=== PATIENT | female | born 1950 | race Caucasian/White ===

== ENCOUNTER 2018-05-16 08:30 | Observation (INO) ==
[2018-05-16] MEDS ORDERED: Sod Chloride 0.9% Inj 1,000 ML IV.SIG ONE (09:01)
[2018-05-16] MEDS ORDERED: Morphine Inj 4 MG/ML Vial IV.PUSH ONE (09:01)
--- NOTE | 2018-05-16 09:30 | ED ---
HPI General Chief Complaint: Abdominal Pain Stated Complaint: rt flank pain x lastnight Time Seen by Provider: 05/16/18 08:54 Source: patient and family Limitations: no limitations History of Present Illness HPI narrative: Patient is a 68-year-old female, past medical history significant for hypertension, hyperlipidemia, previous hysterectomy and appendectomy, who presents with complaint of sudden onset right-sided abdominal pain that woke her from sleep at approximately 2 AM and this is associated with nonbilious, nonbloody emesis. She denies any diarrhea or constipation. She denies any fever or chills. No chest pain or shortness of breath. This pain is never happened before. She states that nothing seems to make it better and position does not change it much. She believes that movement makes it worse though she is not sure. MD complaint: Reports abdominal pain Onset (ago): hour(s) Pain Consistency: constant Location: Reports RUQ and RLQ Severity: severe Quality: Reports cramping, aching and fullness Radiation: Reports none Migration to: Reports no migration Relieving factors: nothing Exacerbating factors: movement Associated symptoms: Reports nausea and vomiting Related Data Home Medications Medication Instructions Recorded Confirmed atenolol 50 mg PO DAILY 05/16/18 05/16/18 simvastatin 10 mg PO QPM 05/16/18 05/16/18 sumatriptan succinate [Imitrex] 100 mg PO Q2-4H PRN 05/16/18 05/16/18 Allergies Allergy/AdvReac Type Severity Reaction Status Date / Time No Known Allergies Allergy Verified 05/16/18 08:43 Review of Systems ROS: all other systems reviewed are negative [facility] Medical History Medical History Elevated cholesterol (Acute) HTN (hypertension) (Acute) History of hysterectomy (Acute) Migraines (Acute) Social History Social History Substance History: No History of Abuse Smoking Status: Current every day smoker Tobacco Type: Cigarettes How Often Do You Have a Drink Containing Alcohol: Monthly or less Recent Travel in [facility] within the Last 8 Weeks: No Recent Out of Country Travel within the Last 8 Weeks: No Immunization History Tetanus Immunization: <5 Years Exam Narrative Exam Narrative: GENERAL: Elderly ill-appearing female clutching her right side SKIN: Focused skin assessment warm/dry. HEAD: Atraumatic. Normocephalic. EYES: Pupils equal and round. No scleral icterus. No injection or drainage. ENT: No nasal bleeding or discharge. Mucous membranes pink and moist. NECK: Trachea midline. No JVD. CARDIOVASCULAR: Regular rate and rhythm. No murmur appreciated. Intact and equal peripheral pulses. RESPIRATORY: No accessory muscle use. Clear to auscultation. Breath sounds equal bilaterally. GASTROINTESTINAL: Abdomen soft, tenderness in the right mid abdomen and right upper quadrant with a positive Santos sign, nondistended. Hepatic and splenic margins not palpable. No CVA tenderness. MUSCULOSKELETAL: No obvious deformities. No clubbing. No cyanosis. No edema. NEUROLOGICAL: Awake and alert. No obvious cranial nerve deficits. Motor grossly within normal limits. Normal speech. PSYCHIATRIC: Appropriate mood and affect; insight and judgment normal. Course Initial Documented Vital Signs Temperature 97.9 F 05/16/18 08:40 Pulse Rate 60 05/16/18 08:40 Respiratory Rate 18 05/16/18 08:40 Blood Pressure 149/66 H 05/16/18 08:40 Pulse Oximetry 98 05/16/18 08:40 Last Documented Vital Signs Temperature 97.9 F 05/16/18 08:40 Pulse Rate 55 L 05/16/18 12:42 Respiratory Rate 18 05/16/18 12:42 Blood Pressure 111/50 L 05/16/18 12:42 Pulse Oximetry 96 05/16/18 12:06 Medical Decision Making [facility] Narrative Medical decision making narrative: Patient is a 68-year-old female who presents with complaint of sudden onset right-sided abdominal pain that woke her from sleep associated with nausea and vomiting. She appeared ill on arrival but was hemodynamically stable. She was given fluids, Zofran, morphine after which she felt much more comfortable. Initial labs revealed a leukocytosis and lactic acidosis at which time blood cultures were drawn and she was given vancomycin and Zosyn empirically. Ultrasound shows biliary sludge but no pericholecystic fluid nor wall thickening. CT shows inflammatory changes around portions of the duodenum with trace free fluid but no perforation. Repeat lactic acid normalized. Given her leukocytosis, lactic acidosis and sudden onset abdominal pain in this elderly female she will be admitted for observation as there is not yet a confirmatory source of her lactic acidosis. I discussed this with the patient and she did not feel comfortable going home at this time though she was feeling much better but she should stay overnight in the hospital. I discussed the case with Dr. Aguirre, hospitalist chemical instrumentation officer, who agreed to the observation admission. It is possible that she had an intussusception as it often occurs at that portion of the duodenum which spontaneously resolved prior to CT. Medical Screen Exam Complete: Yes Emergency Medical Condition: Yes Differential Diagnosis Differential Diagnosis: Differential diagnosis includes but is not limited to acute cholecystitis, stump appendicitis, cecal volvulus, renal colic. Medical Records Medical records reviewed: Yes I reviewed the patient's medical records. Lab Data Lab results reviewed: Yes I reviewed the patient's lab results. Result diagrams: 05/16/18 09:15 05/16/18 09:15 Lab Results 05/16/18 05/16/18 05/16/18 Range/Units 09:15 09:15 09:15 CBC w Diff Auto diff final WBC 13.6 H (4.0-11.0) th/mm3 RBC 4.87 (4.00-5.30) mil/mm3 Hgb 14.5 (11.6-15.3) gm/dL Hct 43.8 (35.0-46.0) % MCV 89.9 (80.0-100.0) fL MCH 29.8 (27.0-34.0) pg MCHC 33.1 (32.0-36.0) % RDW 13.3 (11.6-17.2) % Plt Count 264 (150-450) th/mm3 MPV 10.2 (7.0-11.0) fL Neut % (Auto) 83.9 H (16.0-70.0) % Lymph % (Auto) 10.2 (9.0-44.0) % [place] % (Auto) 5.3 (0.0-8.0) % Eos % (Auto) 0.3 (0.0-4.0) % Baso % (Auto) 0.3 (0.0-2.0) % Neut # (Auto) 11.5 H (1.8-7.7) th/mm3 Lymph # (Auto) 1.4 (1.0-4.8) th/mm3 [place] # (Auto) 0.7 (0.0-0.9) th/mm3 Eos # (Auto) 0.0 (0.0-0.4) th/mm3 Baso # (Auto) 0.0 (0.0-0.2) th/mm3 WBC Differential . Differential Comment . Sodium 143 (136-145) meq/L Potassium 4.0 (3.5-5.1) meq/L Chloride 109 H (98-107) meq/L Carbon Dioxide 24.8 (21.0-32.0) meq/L Anion Gap 9 (5-15) meq/L BUN 24 H (7-18) mg/dL Creatinine 1.20 H (0.50-1.00) mg/dL Estimated GFR 45 L (>89) mL/min Random Glucose 137 H (74-106) mg/dL Lactic Acid 3.1 H (0.4-2.0) mmol/L Calcium 9.2 (8.5-10.1) mg/dL Magnesium 1.7 (1.5-2.5) mg/dL Total Bilirubin 0.4 (0.2-1.0) mg/dL AST 19 (15-37) U/L ALT 19 (10-53) U/L Alkaline Phosphatase 90 (45-117) U/L Total Protein 7.0 (6.4-8.2) g/dL Albumin 3.9 (3.4-5.0) g/dL Lipase 137 (73-393) U/L Ur Collection Type Urine Color (Yellw/Straw) Urine Clarity (Clear) Urine pH (5.0-8.5) Ur Specific [place] (1.002-1.035) Urine Protein (Neg-Trace) mg/dL Urine Glucose (UA) (Negative) mg/dL Urine Ketones (Negative) mg/dL Urine Occult Blood (Negative) Urine Nitrate (Negative) Urine Bilirubin (Negative) Urine Urobilinogen (Less than 2) mg/dL Ur Leukocyte Esterase (Negative) Ur Squamous Epith Cells (0-5) /hpf Micro UA Comment Ur Microscopic Review Urine Culture Comments 05/16/18 05/16/18 Range/Units 11:25 12:00 CBC w Diff WBC (4.0-11.0) th/mm3 RBC (4.00-5.30) mil/mm3 Hgb (11.6-15.3) gm/dL Hct (35.0-46.0) % MCV (80.0-100.0) fL MCH (27.0-34.0) pg MCHC (32.0-36.0) % RDW (11.6-17.2) % Plt Count (150-450) th/mm3 MPV (7.0-11.0) fL Neut % (Auto) (16.0-70.0) % Lymph % (Auto) (9.0-44.0) % [place] % (Auto) (0.0-8.0) % Eos % (Auto) (0.0-4.0) % Baso % (Auto) (0.0-2.0) % Neut # (Auto) (1.8-7.7) th/mm3 Lymph # (Auto) (1.0-4.8) th/mm3 [place] # (Auto) (0.0-0.9) th/mm3 Eos # (Auto) (0.0-0.4) th/mm3 Baso # (Auto) (0.0-0.2) th/mm3 WBC Differential Differential Comment Sodium (136-145) meq/L Potassium (3.5-5.1) meq/L Chloride (98-107) meq/L Carbon Dioxide (21.0-32.0) meq/L Anion Gap (5-15) meq/L BUN (7-18) mg/dL Creatinine (0.50-1.00) mg/dL Estimated GFR (>89) mL/min Random Glucose (74-106) mg/dL Lactic Acid 1.4 (0.4-2.0) mmol/L Calcium (8.5-10.1) mg/dL Magnesium (1.5-2.5) mg/dL Total Bilirubin (0.2-1.0) mg/dL AST (15-37) U/L ALT (10-53) U/L Alkaline Phosphatase (45-117) U/L Total Protein (6.4-8.2) g/dL Albumin (3.4-5.0) g/dL Lipase (73-393) U/L Ur Collection Type Random Urine Color Straw (Yellw/Straw) Urine Clarity Clear (Clear) Urine pH 7.0 (5.0-8.5) Ur Specific [place] 1.010 (1.002-1.035) Urine Protein Negative (Neg-Trace) mg/dL Urine Glucose (UA) Negative (Negative) mg/dL Urine Ketones Negative (Negative) mg/dL Urine Occult Blood Negative (Negative) Urine Nitrate Negative (Negative) Urine Bilirubin Negative (Negative) Urine Urobilinogen 0.2 (Less than 2) mg/dL Ur Leukocyte Esterase Negative (Negative) Ur Squamous Epith Cells 0-5 (0-5) /hpf Micro UA Comment Culture not ind Ur Microscopic Review Microscopic reviewed Urine Culture Comments Culture not ind Imaging Data Attestation: I personally reviewed and interpreted this imaging study as follows : Radiologist's impression: Abdomen/Pelvis CT 05/16/18 09:01 CONCLUSION: 1. There is some subtle inflammatory change and a trace amount of fluid which is adjacent to the second and third portion of the duodenum. This tracks down into the right paracolic gutter. No free air is identified. No findings to indicate bowel obstruction are seen. Gallbladder Ultrasound 05/16/18 09:01 CONCLUSION: 1. Dilation of the pancreatic duct. 2. Trace amount of free fluid within the abdomen. 3. Minimal sludge in the gallbladder neck. There is no pericholecystic fluid or gallbladder wall thickening. Discharge Plan Discharge Disposition Patient Disposition: 30 Still Patient Discharge Condition Condition: Fair Discharge Details Diagnosis: Acidosis, lactic, Abdominal pain, acute Physicians Team ED Provider: Dina Flores Primary Care Provider: Reg David Attending Provider: Urbano Aguirre Status ED Status: Left Department Discharge Information Discharge Date/Time: 05/16/18 13:50
[2018-05-16 09:33] LABS: Baso % (Auto) 0.3 % (0.0-2.0); Eos % (Auto) 0.3 % (0.0-4.0); Hematocrit 43.8 % (35.0-46.0); Hemoglobin 14.5 gm/dL (11.6-15.3); Lymph # (Auto) 1.4 th/mm3 (1.0-4.8); Lymph % (Auto) 10.2 % (9.0-44.0); Mean Corpuscular HGB Conc 33.1 % (32.0-36.0); Mean Corpuscular Hemoglobin 29.8 pg (27.0-34.0); Mean Corpuscular Volume 89.9 fL (80.0-100.0); Mean Platelet Volume 10.2 fL (7.0-11.0); Mono # (Auto) 0.7 th/mm3 (0.0-0.9); Mono % (Auto) 5.3 % (0.0-8.0); Neut # (Auto) 11.5 th/mm3 (1.8-7.7); Neut % (Auto) 83.9 % (16.0-70.0); Platelet Count 264 th/mm3 (150-450); Red Blood Count 4.87 mil/mm3 (4.00-5.30); Red Cell Distribution Width 13.3 % (11.6-17.2); White Blood Count 13.6 th/mm3 (4.0-11.0)
[2018-05-16 09:59] LABS: Chloride 109 meq/L (98-107); Sodium 143 meq/L (136-145)
[2018-05-16 10:02] LABS: Albumin 3.9 g/dL (3.4-5.0); Anion Gap 9 meq/L (5-15); Calcium 9.2 mg/dL (8.5-10.1); Carbon Dioxide 24.8 meq/L (21.0-32.0); Glucose,Random 137 mg/dL (74-106); Magnesium 1.7 mg/dL (1.5-2.5)
[2018-05-16 10:05] LABS: Alanine Aminotransferase 19 U/L (10-53); Lipase 137 U/L (73-393)
[2018-05-16 10:06] LABS: Aspartate Aminotransferase 19 U/L (15-37); Glomerular Filtration Rate 45 mL/min (>89)
[2018-05-16 10:08] LABS: Alkaline Phosphatase 90 U/L (45-117)
[2018-05-16 10:14] LABS: Blood Urea Nitrogen 24 mg/dL (7-18)
[2018-05-16] MEDS ORDERED: Vancomycin Inj 1,000 MG in Sodium Chlor 0.9% Inj 250 ML IV.SIG ONE (10:31)
[2018-05-16] MEDS ORDERED: Piperacil/Tazo 4.5 GM Premix 4.5 GM/100 ML BAG IV.SIG ONE (10:31)
[2018-05-16] MEDS ORDERED: Sod Chloride 0.9% Inj 1,000 ML IV.SIG SCH (10:45)
--- NOTE | 2018-05-16 10:51 | CT ---
EXAM DATE: 05/16/2018 10:28 AM EST AGE/SEX: 68 years / Female INDICATIONS: Right upper and lower quadrant pain. Nausea and vomiting. CLINICAL DATA: This is the patient's initial encounter. Patient reports that signs and symptoms have been present for 1 day and indicates a pain score of 7/10. MEDICAL/SURGICAL HISTORY: Hypertension. Hysterectomy. Appendectomy. ORAL CONTRAST: No oral contrast ingested. RADIATION DOSE: 8.52 CTDI (mGy) COMPARISON: No prior exams available for comparison. TECHNIQUE: Multiple contiguous axial images were obtained through the abdomen and pelvis following b olus infusion of 95 ml Omnipaque 350 (iohexol) nonionic water-soluble contrast as a single exam dos e. No oral contrast ingested. Using automated exposure control and adjustment of the mA and/or kV ac cording to patient size, radiation dose was kept as low as reasonably achievable to obtain optimal di agnostic quality images. DICOM format image data is available electronically for review and comparis on. FINDINGS: The limited portion of lung base visualized is clear. Examination of the liver demonstrates 2 punctate low-attenuation lesions within the left lobe probabl y representing small simple cyst. The spleen, pancreas, adrenal glands and kidneys are within normal limits. The abdominal aorta is normal in caliber. There is no retroperitoneal lymphadenopathy. No free intrap eritoneal air is seen. No free fluid is identified. The visualized loops of small and large bowel demonstrate some subtle inflammatory change around seco nd and third portion of the duodenum this is nonspecific in appearance. There is no free fluid within the pelvis. No iliac or inguinal adenopathy is seen. The loops of small large bowel are unremarkable. There is atherosclerotic plaquing within the iliac arteries. The visualized bony structures demonstrate degenerative changes but are otherwise intact. CONCLUSION: 1. There is some subtle inflammatory change and a trace amount of fluid which is adjacent to the sec ond and third portion of the duodenum. This tracks down into the right paracolic gutter. No free air is identified. No findings to indicate bowel obstruction are seen. Electronically signed by: Mitchel Molina MD 05/16/2018 10:50 AM EST
--- NOTE | 2018-05-16 11:42 | US ---
EXAM DATE: 05/16/2018 11:36 AM EST AGE/SEX: 68 years / Female INDICATIONS: Right upper quadrant pain. CLINICAL DATA: This is the patient's initial encounter. Patient reports that signs and symptoms have been present for 1 day and indicates a pain score of 5/10. MEDICAL/SURGICAL HISTORY: Hypercholesterolemia. Hypertension. Migraines. Hysterectomy. COMPARISON: [facility], CT ABDOMEN & PELVIS W CONTRAST, 05/16/2018. . MEASUREMENTS: Liver:__ 15.1 cm. Common Bile Duct:__ 7mm. FINDINGS: Liver: Normal echotexture without focal lesion or ductal dilatation. The exam does demonstrate 2 pun ctate simple cyst with the largest measuring approximately 6 mm.. Portal Vein: Hepatopedal flow seen in portal vein. Common Duct: No intraluminal mass or stone visualized. Gallbladder: There is no gallbladder wall thickening or pericholecystic fluid. There is a trace amou nt of sludge within the gallbladder neck. Pancreas: The examination demonstrates mild dilation of the pancreatic duct at 4 mm. Right Kidney: Normal echotexture and cortical thickness. No mass or hydronephrosis. Other: There is a trace amount of free fluid within the abdomen. CONCLUSION: 1. Dilation of the pancreatic duct. 2. Trace amount of free fluid within the abdomen. 3. Minimal sludge in the gallbladder neck. There is no pericholecystic fluid or gallbladder wall th ickening. Electronically signed by: Mitchel Molina MD 05/16/2018 11:41 AM EST
[2018-05-16 12:05] LABS: Bilirubin,Urine Negative (Negative); Clarity,Urine Clear (Clear); Glucose,Urine (UA) Negative (Negative); Leukocyte Esterase,Urine Negative (Negative); Nitrite,Urine Negative (Negative); Urobilinogen,Urine 0.2 mg/dL (Less than 2)
[2018-05-16] MEDS ORDERED: Bisacodyl 10 MG Supp RECTAL PRN (12:13)
[2018-05-16 12:15] LABS: Color,Urine Straw (Yellw/Straw)
[2018-05-16] MEDS ORDERED: Sod Chloride 0.9% Inj 1,000 ML IV.CONT SCH (12:15)
[2018-05-16 12:27] LABS: Squamous Epithelial Cell,Urine 0-5 /hpf (0-5)
[2018-05-16] MEDS ORDERED: Acetaminophen 325 MG Tablet PO PRN (15:34)
--- NOTE | 2018-05-16 15:39 | P.HPIM ---
History of Present Illness Primary Care Physician: Reg David MD Patient is a 68-year-old female with past medical history of hypertension presenting to emergency department for complaints of new onset severe 10/10, sharp abdominal pain predominantly on right quadrant. Patient in her usual state of health prior to development of symptoms approximately 2 AM this morning. Review of systems positive for nonbloody nonbilious emesis, nausea, and dry heaving. Review of systems negative for back pain, urinary complaints, melena, hematemesis, lightheadedness, dizziness, loss of consciousness, radiation of pain, chest pain, or palpitations. Of note patient reports that she uses Aleve twice daily for knee pain but otherwise does not use NSAIDs or consume alcohol. No history of stones in the past. No aggravating component to symptoms. Symptoms only relieved when she presented to emergency department and was given a single dose of morphine in the morning but has been well for the last few hours outside of the nausea which she believes may be improving and wants to eat. No new medication changes. No antibiotic use recently. Patient denied noticing rash over her abdominal wall. Patient denied trauma. In emergency department patient received imaging study which showed inflammatory change and a trace amount of fluid which is adjacent to the second and third portion of the duodenum. This tracks down into the right paracolic gutter. No free air is identified. No findings to indicate bowel obstruction are seen. Patient was also found to have elevated lactate 3.1 and was given fluids by emergency department with improvement 1.4. [facility] Medical History Medical History Elevated cholesterol (Acute) HTN (hypertension) (Acute) History of hysterectomy (Acute) Migraines (Acute) Social History Social History Substance History: No History of Abuse Second Hand Smoke Exposure: Yes Smoking Status: Current every day smoker Tobacco Type: Cigarettes How Often Do You Have a Drink Containing Alcohol: Never Recent Travel in [facility] within the Last 8 Weeks: No Recent Out of Country Travel within the Last 8 Weeks: No Immunization History Tetanus Immunization: <5 Years Medications and Allergies Allergies Allergy/AdvReac Type Severity Reaction Status Date / Time No Known Allergies Allergy Verified 05/16/18 08:43 Home Medications Medication Instructions Recorded Confirmed Type atenolol 50 mg PO DAILY 05/16/18 05/16/18 History simvastatin 10 mg PO QPM 05/16/18 05/16/18 History sumatriptan succinate [Imitrex] 100 mg PO Q2-4H PRN 05/16/18 05/16/18 History Active Medications: Active Medications Acetaminophen (Tylenol) 650 mg PO Q4H PRN PRN Reason: Temp > 100.4 Al Hydroxide/Mg Hydroxide (Milk Of Magnleslie Liq) 30 ml PO Q12H PRN PRN Reason: Mild Constipation Bisacodyl (Dulcolax Supp) 10 mg RECTAL DAILY PRN PRN Reason: SEVERE CONSITIPATION Enoxaparin Sodium (Lovenox Inj) 30 mg SQ Q24H [facility] Sodium Chloride (Ns Inj) 1,000 mls @ 75 mls/hr IV.CONT .[id number] [facility] Stop: 05/17/18 01:34 Last Admin: 05/16/18 13:27 Dose: 75 mls/hr Ondansetron HCl (Zofran Inj) 4 mg IV.PUSH Q6H PRN PRN Reason: NAUSEA OR VOMITING Ondansetron HCl (Zofran Inj) 4 mg IV.PUSH Q6H PRN PRN Reason: NAUSEA OR VOMITING Senna/Docusate Sodium ([place]-Colace) 1 tab PO BID [facility] Sennosides (Senokot) 17.2 mg PO Q12H PRN PRN Reason: Moderate Constipation Sodium Chloride (Ns Flush) 2 ml IV.FLUSH BID VIOLETA Sodium Chloride (Ns Flush) 2 ml IV.FLUSH PRN PRN PRN Reason: FLUSH AFTER USING IV ACCESS Sodium Chloride (Ns Flush) 2 ml IV.FLUSH BID VIOLETA Sodium Chloride (Ns Flush) 2 ml IV.FLUSH PRN PRN PRN Reason: FLUSH AFTER USING IV ACCESS Physical Exam Vital signs: Last Vital Signs Temp 97.3 F L 05/16/18 14:18 Pulse 56 L 05/16/18 14:18 Resp 18 05/16/18 14:18 BP 108/58 L 05/16/18 14:18 Pulse Ox 97 05/16/18 14:18 Intake & Output 05/14/18 05/15/18 05/16/18 05/17/18 06:59 06:59 06:59 06:59 Intake Total 3350 / 3350 Balance 3350 / 3350 Weight 64 kg general: No acute distress, conversational HEENT: EOMI Cardia vascular: S1/S2. No murmurs rubs or gallops appreciated Respiratory: Clear to auscultation anteriorly posteriorly. No intercostal muscle use Gastrointestinal: Soft, nontender, nondistended, no guarding or rebound.. Negative Santos sign. No rash over abdominal cavity. Midline postsurgical scar from hysterectomy past. Extremity: No calf tenderness, no edema. Results Labs CBC & Chem 7: 05/16/18 09:15 05/16/18 09:15 Imaging Impressions Abdomen/Pelvis CT 05/16/18 09:01 CONCLUSION: 1. There is some subtle inflammatory change and a trace amount of fluid which is adjacent to the second and third portion of the duodenum. This tracks down into the right paracolic gutter. No free air is identified. No findings to indicate bowel obstruction are seen. Gallbladder Ultrasound 05/16/18 09:01 CONCLUSION: 1. Dilation of the pancreatic duct. 2. Trace amount of free fluid within the abdomen. 3. Minimal sludge in the gallbladder neck. There is no pericholecystic fluid or gallbladder wall thickening. Caprini VTE Risk Assessment Caprini VTE Risk Assessment: No/Low Risk (score <= 1) Caprini Risk Assessment Model: Point Value = 1 Point Value = 2 Point Value = 3 Point Value = 5 Age 41-60 Minor surgery BMI > 25 kg/m2 Swollen legs Varicose veins or History of unexplained or recurrent spontaneous Oral contraceptives or hormone replacement Sepsis (< 1 month) Serious lung disease, including pneumonia (< 1 month) Abnormal pulmonary function Acute myocardial infarction Congestive heart failure (< 1 month) History of inflammatory bowel disease Medical patient at bed rest Age 61-74 Arthroscopic surgery Major open surgery (> 45 min) Laparoscopic surgery (> 45 min) Malignancy Confined to bed (> 72 hours) Immobilizing plaster cast Central venous access Age >= 75 History of VTE Family history of VTE Factor V Leiden Prothrombin [id number] Lupus anticoagulant Anticardiolipin antibodies Elevated serum homocysteine Heparin-induced thrombocytopenia Other congenital or acquired thrombophilia Stroke (< 1 month) Elective arthroplasty Hip, pelvis, or leg fracture Acute spinal cord injury (< 1 month) Prophylaxis Regimen: Total Risk Factor Score Risk Level Prophylaxis Regimen 0-1 Low Early ambulation 2 Moderate Order ONE of the following: *Sequential Compression Device (SCD) *Heparin 5000 units SQ BID 3-4 Higher Order ONE of the following medications: *Heparin 5000 units SQ TID *Enoxaparin/Lovenox 40 mg SQ daily (WT < 150 kg, CrCl > 30 mL/min) *Enoxaparin/Lovenox 30 mg SQ daily (WT < 150 kg, CrCl > 10-29 mL/min) *Enoxaparin/Lovenox 30 mg SQ BID (WT < 150 kg, CrCl > 30 mL/min) AND/OR *Sequential Compression Device (SCD) 5 or more Highest Order ONE of the following medications: *Heparin 5000 units SQ TID (Preferred with Epidurals) *Enoxaparin/Lovenox 40 mg SQ daily (WT < 150 kg, CrCl > 30 mL/min) *Enoxaparin/Lovenox 30 mg SQ daily (WT < 150 kg, CrCl > 10-29 mL/min) *Enoxaparin/Lovenox 30 mg SQ BID (WT < 150 kg, CrCl > 30 mL/min) AND *Sequential Compression Device (SCD) Assessment and Plan Plan Gastroenterology: Abdominal pain, enteritis Lipase level normal, CT with evidence of inflammation. Lactate level normal. Full liquid diet and advance as tolerated Physical examination unremarkable for Santos sign. No evidence of stone. No alcohol use and history. Zofran PRN nausea. Blood culture in progress. Patient may have had an episode of biliary colic from missed gallstone. Recommend on discharge patient follow-up with primary medical doctor for repeat transabdominal ultrasound to detect gallstones which may have been missed on initial evaluation. Nephrology: Acute kidney injury Continue IV fluid hydration BMP in the morning Cardiology: Hypertension, hyperlipidemia Continue atenolol 50 mg p.o. daily Continue simvastatin 10 mg at night CODE STATUS: Full code DVT prophylaxis: Lovenox subcu Disposition: Observation status Diet: Cardiac diet as advanced
[2018-05-16] MEDS: Enoxaparin Inj 30 MG/0.3 ML Syringe SQ SCH (15:55)
[2018-05-16] MEDS: Atenolol 50 MG Tablet PO SCH (15:55)
[2018-05-16] MEDS: Senna/Docusate Sodium 8.6/50 MG Tablet PO SCH (22:23)
[2018-05-17 06:51] LABS: Baso % (Auto) 0.3 % (0.0-2.0); Eos # (Auto) 0.2 th/mm3 (0.0-0.4); Eos % (Auto) 2.6 % (0.0-4.0); Hematocrit 36.7 % (35.0-46.0); Hemoglobin 11.9 gm/dL (11.6-15.3); Lymph # (Auto) 2.5 th/mm3 (1.0-4.8); Lymph % (Auto) 28.2 % (9.0-44.0); Mean Corpuscular HGB Conc 32.3 % (32.0-36.0); Mean Corpuscular Volume 89.6 fL (80.0-100.0); Mean Platelet Volume 9.8 fL (7.0-11.0); Mono # (Auto) 0.5 th/mm3 (0.0-0.9); Mono % (Auto) 6.1 % (0.0-8.0); Neut # (Auto) 5.5 th/mm3 (1.8-7.7); Neut % (Auto) 62.8 % (16.0-70.0); Platelet Count 201 th/mm3 (150-450); Red Cell Distribution Width 12.9 % (11.6-17.2); White Blood Count 8.7 th/mm3 (4.0-11.0)
[2018-05-17 07:03] LABS: Potassium 4.1 meq/L (3.5-5.1)
[2018-05-17 07:31] LABS: Calcium 8.1 mg/dL (8.5-10.1); Total Protein 5.6 g/dL (6.4-8.2)
--- NOTE | 2018-05-17 09:41 | P.PNIM ---
Subjective Interval history: Reports that abdominal complaints are completely resolved at this point and she no longer has right upper quadrant abdominal pain, patient denied fever or chills, patient denied nausea, vomiting, cramping pain, change in bowel habits, no diarrhea. Patient also denies chest pain or shortness of breath Physical Exam Vital signs: Last Vital Signs Temp 99.1 F 05/17/18 08:00 Pulse 69 05/17/18 08:00 Resp 20 05/17/18 08:00 BP 119/58 L 05/17/18 08:00 Pulse Ox 96 05/17/18 08:00 Intake & Output 05/15/18 05/16/18 05/17/18 05/18/18 06:59 06:59 06:59 06:59 Intake Total 4830 / 4830 240 / 240 Balance 4830 / 4830 240 / 240 Weight 67.8 kg General: No acute distress, conversational Cardiovascular: S1/S2. No murmur noted Respiratory: Clear to auscultation Gastrointestinal: Soft, nontender, nondistended, no guarding or rebound. Negative Santos sign. No guarding or rebound. Positive bowel sounds, no rash Extremity: 2+ radial pulse right upper examinee, no lower examinee edema or calf tenderness. Results Labs CBC & Chem 7: 05/17/18 05:50 05/17/18 05:50 Imaging Imaging: Impressions Abdomen/Pelvis CT 05/16/18 09:01 CONCLUSION: 1. There is some subtle inflammatory change and a trace amount of fluid which is adjacent to the second and third portion of the duodenum. This tracks down into the right paracolic gutter. No free air is identified. No findings to indicate bowel obstruction are seen. Gallbladder Ultrasound 05/16/18 09:01 CONCLUSION: 1. Dilation of the pancreatic duct. 2. Trace amount of free fluid within the abdomen. 3. Minimal sludge in the gallbladder neck. There is no pericholecystic fluid or gallbladder wall thickening. Assessment and Plan Plan Gastroenterology: Abdominal pain, enteritis Lipase level normal, CT with evidence of inflammation. Lactate level normal. Physical examination unremarkable for Santos sign. No evidence of stone. No alcohol use and history. Zofran PRN nausea. Blood culture NGTD. Possibility will definitively evaluate possibility that patient does not have cholecystitis or developing cholecystitis infection. Will obtain HIDA scan and make patient n.p.o. at this time. Case briefly reviewed with gastroneurology team and they are in agreement with plan of care to this point. Nuclear medicine contacted and patient could possibly have study done today. Case also discussed with patient and she is in agreement to undergo study Leukocytosis resolved Nephrology: Acute kidney injury Acute kidney injury has now resolved with IV fluid hydration. Neurology: Migraine headache Patient on Imitrex 100 mg outpatient IV Tylenol while n.p.o. Cardiology: Hypertension, hyperlipidemia Continue atenolol 50 mg p.o. daily Continue simvastatin 10 mg at night CODE STATUS: Full code DVT prophylaxis: Lovenox subcu Disposition: Observation status Diet: NPO then advance after study to cardiac Progress Note: Quality VTE Deep Vein Thrombosis/Pulmonary Embolism Present on Admission: No
[2018-05-17] MEDS: Senna/Docusate Sodium 8.6/50 MG Tablet PO SCH ×2 (10:10→21:59)
[2018-05-17] MEDS: Atenolol 50 MG Tablet PO SCH (10:11)
[2018-05-17] MEDS ORDERED: SINCALIDE IV.SIG ONE (11:54)
[2018-05-17] MEDS ORDERED: SODIUM CHLOR 0.9% IV.SIG ONE (11:54)
[2018-05-17] MEDS: Enoxaparin Inj 30 MG/0.3 ML Syringe SQ SCH (15:16)
--- NOTE | 2018-05-17 15:19 | NM ---
EXAM DATE: 05/17/2018 3:14 PM EST AGE/SEX: 68 years / Female INDICATIONS: Right upper quadrant pain. CLINICAL DATA: This is the patient's initial encounter. Patient reports that signs and symptoms have been present for 1 day and indicates a pain score of 5/10. MEDICAL/SURGICAL HISTORY: Hypertension. Hypercholesterolemia. Hysterectomy. COMPARISON: [facility], CT ABDOMEN & PELVIS W CONTRAST, 05/16/2018. . DOSE: 4.3 mCi Tc-99m mebrofenin i.v. TECHNIQUE: Following the intravenous administration of radiotracer, dynamic sequential images were pe rformed with continuous acquisition. Time-activity curves were generated. FINDINGS: Hepatic Kinetics: There is prompt uptake of radiotracer in the liver. No focal defects are seen. T here is normal rate of washout from the hepatic parenchyma. Biliary Clearance: Activity is first seen in the extrahepatic biliary system at 10 minutes. There i s normal excretion into the small bowel. Gallbladder: Activity is first seen in the gallbladder at 15 minutes. Biliary-Enteric Reflux: None observed. CONCLUSION: 1. There is prompt uptake and excretion of contrast. No findings to indicate acute cholecystitis are identified. Electronically signed by: Mitchel Molina MD 05/17/2018 3:18 PM EST
[2018-05-17] MEDS ORDERED: Morphine Sulfate Inj 2 MG/ML Vial IV.PUSH PRN (16:15)
[2018-05-17] MEDS ORDERED: Sod Chloride 0.9% Inj 1,000 ML IV.CONT SCH (17:09)
[2018-05-18] MEDS: Atenolol 50 MG Tablet PO SCH (09:41)
[2018-05-18] MEDS: Senna/Docusate Sodium 8.6/50 MG Tablet PO SCH (09:41)
[2018-05-18] MEDS: Enoxaparin Inj 30 MG/0.3 ML Syringe SQ SCH (12:01)
--- NOTE | 2018-05-18 15:52 | P.DS ---
DS: Providers Date of admission: 05/16/18 12:11 Primary care physician: Reg David MD Consults: 05/16/18 20:11 Consult to Gastroenterology Routine Consulting Provider: You Hoskins V Reason for Consultation: abdominal pain with CT showing pancreatic duct dilation and small amount of sludge on GB ultrasound. No evident stone but concern for billiary colic from sluge impaction. ?benefit for ERCP vs careful monitoring outpatient Notified:: Service Spoke with:: Patel Date Notified:: 05/16/18 Time Notified:: 20:15 Ordering Provider: WILLIE DS: Summary Patient is a pleasant 68-year-old female with past medical history of migraine headache, hyperlipidemia, and hypertension presenting with right upper quadrant abdominal pain. Patient in usual state of health prior to presentation when she developed acute onset abdominal pain which woke her up in the morning. Patient reported associated nausea at the time and presented to emergency department for further evaluation. Initial lab work up included CT abdomen and pelvis showing subtle inflammatory change and a trace amount of fluid adjacent to the second and third portion of the duodenum. This tracks down into the right paracolic gutter. No free air is identified. No findings to indicate bowel obstruction are seen. Gallbladder ultrasound showed Minimal sludge in the gallbladder neck. There is no pericholecystic fluid or gallbladder wall thickening. follow-up HIDA scan to rule out developing cholecystitis was negative. Patient clinical pain improved during hospitalization. Of note patient reports that she suffers from knee pain and frequently takes Aleve medication. Case was reviewed with gastroenterology specialist with consideration of peptic ulcer disease as possible etiology for patient abdominal pain. With patient clinically improving patient to be started on Protonix 40 mg daily with plan outpatient evaluation by gastroenterology service for consideration of endoscopic exploration to evaluate for possible peptic ulcer disease. Patient tolerating p.o. diet and clinically improved with plan discharge to follow-up with gastroenterology within 1 week as well as primary medical doctor within 7 days. Time Spent with Patient Total time spent providing and/or coordinating discharge services: >45 minutes Patient is a pleasant 68-year-old female with past medical history of migraine headache, hyperlipidemia, and hypertension presenting with right upper quadrant abdominal pain. Patient in usual state of health prior to presentation when she developed acute onset abdominal pain which woke her up in the morning. Patient reported associated nausea at the time and presented to emergency department for further evaluation. Initial lab work up included CT abdomen and pelvis showing subtle inflammatory change and a trace amount of fluid adjacent to the second and third portion of the duodenum. This tracks down into the right paracolic gutter. No free air is identified. No findings to indicate bowel obstruction are seen. Gallbladder ultrasound showed Minimal sludge in the gallbladder neck. There is no pericholecystic fluid or gallbladder wall thickening. follow-up HIDA scan to rule out developing cholecystitis was negative. Patient clinical pain improved during hospitalization. Of note patient reports that she suffers from knee pain and frequently takes Aleve medication. Case was reviewed with gastroenterology specialist with consideration of peptic ulcer disease as possible etiology for patient abdominal pain. With patient clinically improving patient to be started on Protonix 40 mg daily with plan outpatient evaluation by gastroenterology service for consideration of endoscopic exploration to evaluate for possible peptic ulcer disease. Patient tolerating p.o. diet and clinically improved with plan discharge to follow-up with gastroenterology within 1 week as well as primary medical doctor within 7 days. Quality: VTE Deep Vein Thrombosis/Pulmonary Embolism Present on Admission: No Exam Narrative Exam Narrative: General: No acute distress HEENT EOMI Cardia vascular: S1/S2 Respiratory: Clear to auscultation anteriorly and posteriorly Gastrointestinal: Soft, nontender, nondistended, no guarding or rebound. Negative Santos sign with deep palpation while inspiring. No rash noted. Positive bowel sounds. Extremities: No calf tenderness no edema Results Labs on day of discharge: Preliminary micro results at discharge 05/16/18 11:32 Aerobic Blood Culture - Preliminary Blood - Peripheral No growth in 2 days Anaerobic Blood Culture - Preliminary No growth in 2 days 05/16/18 11:25 Aerobic Blood Culture - Preliminary Blood - Peripheral No growth in 2 days Anaerobic Blood Culture - Preliminary No growth in 2 days Impressions ITS Impressions Abdomen/Pelvis CT 05/16/18 09:01 CONCLUSION: 1. There is some subtle inflammatory change and a trace amount of fluid which is adjacent to the second and third portion of the duodenum. This tracks down into the right paracolic gutter. No free air is identified. No findings to indicate bowel obstruction are seen. Gallbladder Ultrasound 05/16/18 09:01 CONCLUSION: 1. Dilation of the pancreatic duct. 2. Trace amount of free fluid within the abdomen. 3. Minimal sludge in the gallbladder neck. There is no pericholecystic fluid or gallbladder wall thickening. Hepatobiliary Scan Nuclear Medicine 05/17/18 11:55 CONCLUSION: 1. There is prompt uptake and excretion of contrast. No findings to indicate acute cholecystitis are identified. Discharge Plan Discharge Disposition Patient Disposition: 01 Discharge Home Discharge Condition Condition: Good Discharge Order Discharge Orders: Discharge Order (Routine); Ordered 05/18/18 Ordered By: Urbano Aguirre Discharge Details Anticipated Discharge Date: 05/18/18 Discharge Comment: please call your PMD for appointment for follow up after discharge. Please call for gastroenterology appointment for consideration of endoscopy for abdominal pain evaluation. Physicians Team ED Provider: Dina Flores Primary Care Provider: Reg David Attending Provider: Urbano Aguirre Other Providers: You Hoskins V Rxs /Orders / Referrals /Forms Prescriptions: New pantoprazole [Protonix] 40 mg tablet,delayed release (DR/EC) 40 mg PO DAILY 28 Days Qty: 28 RF: 0 Continue sumatriptan succinate [Imitrex] 100 mg Tablet 100 mg PO Q2-4H PRN (Reason: Headache) RF: 0 simvastatin 10 mg Tablet 10 mg PO QPM RF: 0 atenolol 50 mg Tablet 50 mg PO DAILY RF: 0 Referrals: You Hoskins MD [Physician] - See Instructions (Please follow up within 7 days for consideration of EGD to evaluate possible stress ulcer formation. Will start protonix 40mg daily and follow up.) Reg David MD [Primary Care Provider] - See Instructions (Follow up within 7 days for appointment. ) Discharge Instructions Patient Printed Instructions: Pantoprazole (By mouth), Acute Abdominal Pain (DC ), Lactic Acidosis (GEN), Enteritis (DC) Status ED Status: Left Department Discharge Information Discharge Date/Time: 05/18/18 12:51
== END 2018-05-18 12:51 | disposition home or self-care (01) ==
LOC: PHEDA 08:30 → PHED 08:30 → PH3 13:43
PROVIDERS: ADMIT Internal Medicine; ATTEND Internal Medicine
DX: Z79.899 Other long term (current) drug therapy; G43.909 Migraine, unspecified, not intractable, without status migrainosus; Z90.710 Acquired absence of both cervix and uterus; F17.210 Nicotine dependence, cigarettes, uncomplicated; E78.00 Pure hypercholesterolemia, unspecified; E87.2 Acidosis; I10 Essential (primary) hypertension; K86.89 Other specified diseases of pancreas; K52.9 Noninfective gastroenteritis and colitis, unspecified; E78.5 Hyperlipidemia, unspecified; N17.9 Acute kidney failure, unspecified